=== PATIENT | male | born 1955 | race Caucasian/White ===

== ENCOUNTER 2016-11-26 15:28 | Emergency (ER) | payer BC ==
[2016-11-26] MEDS ORDERED: KETOROLAC TROMETHAMINE 30 MG/ML VIAL ONE (16:01)
[2016-11-26] MEDS ORDERED: ONDANSETRON HCL 4 MG/2 ML VIAL ONE (16:02)
--- NOTE | 2016-11-26 16:51 | ER NURSING DOCUMENTATION ---
Nurse's Notes [facility] Name:Floyd Maldonado Age:61 yrs Sex:Male :1955 Arrival Date:11/26/2016 Time:15:28 Bed3 Private MD: Diagnosis:Nausea;Headache, Tension Presentation: 11/26 15:35 Acuity: KARLIE 3 lc 15:40 Presenting complaint: Patient states: headache since this AM, vomited x4, denies sj photophobia or stiff neck. Transition of care: Home. 15:40 Method Of Arrival: Private Vehicle sj Triage Assessment: 15:42 Headache History: The patient has had previous headaches. General: Appears distressed, sj uncomfortable, Behavior is cooperative, pleasant. Pain: Complains of pain in right temporal area Pain currently is 7 out of 10 on a pain scale. Pain began since this AM. Neuro: Level of Consciousness is awake, alert, Oriented to person, place, time, event, Autotransfusionist are weak bilaterally Speech is normal, Facial symmetry appears normal, Denies paresthesias. Cardiovascular: Capillary refill < 3 seconds. Respiratory: Respiratory effort is even, unlabored, Respiratory pattern is regular, symmetrical. 16:49 Pain: Also complains of nausea, labile emotions. sj Historical: - Allergies: No known drug Allergies; - Home Meds: 1. Minocycline Oral 2. losartan oral 3. aspirin 81 mg oral tab 1 tab once daily - PMHx: Hypertension; - PSHx: titanium implant left humerus; - Tetanus: < 10 years. - Ebola Screening: : Patient negative for fever greater than or equal to 101.5 degrees Fahrenheit, and additional compatible Ebola Virus Disease symptoms. Patient denies exposure to infectious person. Patient denies travel to an Ebola-affected area in the 21 days before illness onset. No symptoms or risks identified at this time. . - Immunization history: Pneumococcal vaccine is up to date, Flu Vaccine None. - Social history: Smoking status: Patient states was never smoker of tobacco. Patient uses alcohol but reports only rare drinking. Patient/guardian denies using marijuana. Screenin:44 Infectious Disease Risk None. Abuse screen: Denies threats or abuse. Denies injuries sj from another. Nutritional screening: No deficits noted. Vital Signs: 15:34 BP 165 / 97; Pulse 96; Resp 20; Temp 97.8(O); Pulse Ox 98% on R/A; Weight 97.52 kg (R); arc Height 5 ft. 9 in. (175.26 cm) (R); Pain 8/10; 16:06 BP 172 / 94; Pulse 90; Resp 20; Pulse Ox 95% on R/A; sj 16:35 BP 170 / 95; Pulse 91; Pulse Ox 96% on R/A; sj 15:34 Body Mass Index 31.75 (97.52 kg, 175.26 cm) arc Hugo Coma Score: 16:42 Eye Response: spontaneous(4). Verbal Response: oriented(5). Motor Response: obeys be commands(6). Total: 15. ED Course: 15:29 Patient arrived in ED. em3 15:33 Nilay Del Real MD is Attending Physician. be 15:35 Triage completed. lc 15:40 Loren Vazquez is Primary Nurse. sj 15:44 Notified ED Physician of patient's arrival and chief complaint. Dr. Del Real. sj 15:44 Valuables Remains with patient Patient has correct armband on for positive sj identification. Bed in low position. Call light in reach. Pulse Ox - RN Monitoring Only NIBP On - RN Monitoring Only. 16:06 Inserted peripheral IV: 20 gauge in right hand Missed attempts: 20 gauge in right sj antecubital area. Administered Medications: 16:00 Drug: NS 0.9% 1000 ml; Route: IV; Rate: bolus; Site: right hand; sj 16:50 Follow up: IV Status: Completed infusion; IV Intake: 1000ml sj 16:01 Drug: Zofran 8 mg; Route: IVP; Infused Over: 2 mins; Site: right hand; sj 16:50 Follow up: Response: Nausea is decreased sj 16:02 Drug: Toradol 30 mg; Route: IVP; Site: right hand; sj 16:50 Follow up: Response: Pain is decreased sj Intake: 16:50 IV: 1000ml; Total: 1000ml. sj Outcome: 16:30 Discharge ordered by . be 16:49 Discharged to home ambulatory. sj 16:49 Condition: improved 16:49 Instructed on discharge instructions, follow up and referral plans. medication usage, Demonstrated understanding of instructions, medications, Prescriptions given X 1. 16:49 IV D/Anjum 16:51 Patient left the ED. sj 07 11:13 Discharge F/U Call: Unable to reach: no answer Signatures: Lela Kennedy, BENJA RN Nilay Page MD MD be Meiklejohn, Eric em3 Chew, Amelia, Reg Reg arc Hofsess, Rachel Loren Vazquez
--- NOTE | 2016-11-26 16:51 | ER PHYSICIAN DOCUMENTATION ---
Physician Documentation [facility] Name:Floyd Maldonado Age:61 yrs Sex:Male :1955 Arrival Date:11/26/2016 Time:15:28 Bed3 Private MD: Nilay Hutchison Disposition: 11/26/16 16:30 Discharged to Home/Self Care. Impression: Nausea, Headache, Tension. - Condition is Good. - Discharge Instructions: Altitude - ALTITUDE SICKNESS. - Prescriptions for Zofran 8 mg Oral - take 1 tablet by ORAL route 3 times per day; 30 tablet. - Medical Reconciliation form form. - Follow up: Private Physician; When: As needed; Reason: Recheck today's complaints. - Problem is new. - Symptoms have improved. HPI: 11/26 16:36 This 61 yrs old Male presents to ER via Private Vehicle with complaints of be Headache. 16:36 The patient complains of pain to the right ear and right yazidism and right temporal be area. Onset: The symptoms/episode began/occurred gradually, this morning. Onset: The symptoms/episode began/occurred arrived from [facility] on . Associated signs and symptoms: Pertinent positives: nausea, Pertinent negatives: fever, neck stiffness, sinus congestion, sinus tenderness, vision changes, vomiting, weakness. Historical: - Allergies: No known drug Allergies; - Home Meds: 1. Minocycline Oral 2. losartan oral 3. aspirin 81 mg oral tab 1 tab once daily - PMHx: Hypertension; - PSHx: titanium implant left humerus; - Tetanus: < 10 years. - Ebola Screening: : Patient negative for fever greater than or equal to 101.5 degrees Fahrenheit, and additional compatible Ebola Virus Disease symptoms. Patient denies exposure to infectious person. Patient denies travel to an Ebola-affected area in the 21 days before illness onset. No symptoms or risks identified at this time. . - Immunization history: Pneumococcal vaccine is up to date, Flu Vaccine None. - Social history: Smoking status: Patient states was never smoker of tobacco. Patient uses alcohol but reports only rare drinking. Patient/guardian denies using marijuana. ROS: 16:40 Neuro: Positive for headache, Negative for altered mental status. be 16:40 All other systems are negative. Exam: 16:41 Constitutional: This is a well developed, well nourished patient who is awake, alert, be and in no acute distress. Head/Face: Normocephalic, atraumatic. Eyes: Pupils equal round and reactive to light, extra-ocular motions intact. Lids and lashes normal. Conjunctiva and sclera are non-icteric and not injected. Cornea within normal limits. Periorbital areas with no swelling, redness, or edema. 16:41 Neck: Trachea midline, no thyromegaly or masses palpated, and no cervical be lymphadenopathy. Supple, full range of motion without nuchal rigidity, or vertebral point tenderness. No Meningismus. 16:41 Eyes: Pupils: equal, round, and reactive to light and accomodation. 16:41 Neck: ROM/movement: no acute changes, Meningeal signs: are not present. 16:43 Neuro: Gait: is steady, at a normal pace, without difficulty. be 16:43 Neuro: Orientation: no acute changes, to person, place, time & situation. be Vital Signs: 15:34 BP 165 / 97; Pulse 96; Resp 20; Temp 97.8(O); Pulse Ox 98% on R/A; Weight 97.52 kg (R); arc Height 5 ft. 9 in. (175.26 cm) (R); Pain 8/10; 16:06 BP 172 / 94; Pulse 90; Resp 20; Pulse Ox 95% on R/A; sj 16:35 BP 170 / 95; Pulse 91; Pulse Ox 96% on R/A; sj 15:34 Body Mass Index 31.75 (97.52 kg, 175.26 cm) arc Hugo Coma Score: 16:42 Eye Response: spontaneous(4). Verbal Response: oriented(5). Motor Response: obeys be commands(6). Total: 15. MDM: 15:33 Patient medically screened. be 16:42 Differential diagnosis: cluster headache, migraine. Neurological re-evaluation: normal be neurological exam including cranial nerves, orientation, mentation, motor and sensory exam, cerebellar testing, GCS normal, and normal gait. Data reviewed: vital signs, nurses notes, and as a result, I will administer IV fluids, NS bolus, prescribe pain medication, Toradol, Zofran. Dispensed Medications: 16:00 Drug: NS 0.9% 1000 ml; Route: IV; Rate: bolus; Site: right hand; sj 16:50 Follow up: IV Status: Completed infusion; IV Intake: 1000ml sj 16:01 Drug: Zofran 8 mg; Route: IVP; Infused Over: 2 mins; Site: right hand; 16:50 Follow up: Response: Nausea is decreased 16:02 Drug: Toradol 30 mg; Route: IVP; Site: right hand; 16:50 Follow up: Response: Pain is decreased Signatures: Nilay Del Real MD MD be Janzen, Sarah
== END 2016-11-26 16:51 | disposition home or self-care (01) ==
LOC: ER 15:28
DX: R11.0 Nausea (principal); G44.201 Tension-type headache, unspecified, intractable; I10 Essential (primary) hypertension; Z79.899 Other long term (current) drug therapy
CPT/HCPCS: 96361; 96374; 96375; 99283; J1885; J2405